=== PATIENT | female | born 1970 | race Caucasian/White ===

== ENCOUNTER 2017-01-02 22:02 | Inpatient (IN) | payer OTHER ==
[~2017-01-02] VITALS: Ht 162.6 cm; Wt 64.8 kg
[~2017-01-02 22:02] MED LIST: DEXA6TAB PO; HYDR-4003 PO; MELO7.5O PO; ROB500 PO; TIZA4CAP8 PO
[2017-01-02 22:15] VITALS: BP 106/72; PULSE 125; RESP 24; O2SAT 98
[2017-01-02 22:52] LABS: APPEARANCE,URINE CLOUDY (CLEAR,HAZY); COLOR,URINE YELLOW (YELLOW); OCCULT BLOOD,URINE MODERATE (NEGATIVE); UROBILINOGEN,URINE NORMAL (NORMAL)
[2017-01-02 23:04] LABS: BASOPHILS % (AUTO) 0.2 % (0-3); MONOCYTES % (AUTO) 9.7 % (4-12); Mean Corpuscular Hemoglobin 30.8 pg (27.0-35.0); Mean Corpuscular Volume 91.6 fL (81-100); NEUTROPHILS % (AUTO) 81.2 % (40-74); Platelet Count 243 bil/L (150-400)
[2017-01-02] MEDS ORDERED: 0.9% Sodium Chloride 1,000 ML IV ONE ×2 (23:04→23:50)
[2017-01-02] MEDS ORDERED: Ondansetron 2 mg/mL 2 mL Inj IVPUSH PRN (23:05)
[2017-01-02] MEDS ORDERED: cefTRIAXone Inj 2,000 MG in Dextrose 5% Minibag Plus 50 ML IV ONE (23:10)
--- NOTE | 2017-01-02 23:10 | ED.REPORT ---
HPI-Abd Pain F 40 and Over Date of Service Jan 02, 2017 ED Provider: Marcial Munoz MD A 46 year old female with a history of cervical cancer and hysterectomy presents to the ED complaining of left sided flank pain radiating to her abdomen. The pt has been experiencing intermittent left sided flank pain for the last month, but the pain worsened significantly in the last three days. The pt is also complaining of fever, chills, dysuria, headache, nausea, and vomiting this morning. The pt denies any history of kidney stones or UTI. Nursing Notes Stated Complaint: KIDNEY INFECTION Chief Complaint: Female Abdominal Pain Nursing Notes Reviewed: Yes Allergies: Coded Allergies: Penicillins (Verified Allergy, Severe, UNKNOWN, 05/24/16) amoxicillin (Verified Allergy, Severe, 05/24/16) Scheduled Dexamethasone (Dexamethasone) 6 Mg Tablet 9 MG PO DAILY Meloxicam (Meloxicam) 7.5 Mg/5 Ml Oral.susp 15 MG PO DAILY Methocarbamol (Methocarbamol) 500 Mg Tablet 500 MG PO TID Tizanidine (Tizanidine) 4 Mg Capsule 4 MG PO TID Scheduled PRN Hydrocodone-Acetaminophen 5-325 mg (Hydrocodone-Acetaminophen 5-325 mg) 1 Each Tablet 1 TABLET PO Q4H PRN PRN For Pain General Time Seen by MD: 22:45 Chief Complaint Flank pain left Hx Obtained From: Patient Arrived By: Walk-in Sudden in Onset?: No Onset Occurred: More than a week ago... Symptom Duration: Since onset Recent Healthcare: No recent doctor visit, No recent hospitalization Similar Sx Previous: No Past Medical History Past Medical History Notes: PCP: Nel Greene Past Medical History Cervical cancer Past Surgical History Hysterectomy Right shoulder surgery Smoking History Never Smoker, Unknown if Ever Smoker Social History Other Social History: Good social support, Lives alone, Local resident Ambulatory Status Independent Review of Systems Constitutional: Reports: Chills, Fever GI: Reports: Abdominal pain, Nausea, Vomiting Female: Reports: Dysuria, Flank pain (left ) Musculoskeletal: Denies: Back pain, Neck pain Complete sys rev & neg: except as marked. Skin: Denies Rash Neurologic: Reports: Headache Physical Exam Vital Signs Vital Signs (First) Date Time Temp Pulse Resp B/P Pulse Ox O2 Delivery O2 Flow Rate FiO2 01/02/17 22:15 38.7 125 24 106/72 98 Room Air Initial VS: Reviewed General/Constitutional: Awake, Alert Respiratory / Chest: Atraumatic, Breath sounds NL, Breath sounds = bilat, No respiratory distress Cardiovascular: Regular rhythm, Heart sounds NL, No murmurs Heart Rate / Rhythm: Positive: Tachycardia Abdomen: Atraumatic, Soft diffuse abdominal tenderness Back: Atraumatic, Full range of motion left CVAT Head / Eyes: Atraumatic, Normocephalic, PERRL, EOMI ENT: Atraumatic, Airway patent, Mucous membranes moist Skin: Atraumatic, Color NL, No rash, Dry febrile Neurologic: Oriented X3, Speech NL, No motor deficits, No sensory deficits Neck: Atraumatic, Supple, Full range of motion Upper Extremity / MS: Atraumatic, Full range of motion Lower Extremity / Pelvis / MS: Atraumatic, Full range of motion Psychiatric: Affect NL, Mood NL Interpretation & Diagnostics Lab Results Interpretation Result Diagram: 01/02/17 2255 01/02/17 2305 Test 01/02/17 22:32 01/02/17 22:40 01/02/17 22:55 01/02/17 23:05 Hold Urine Received (Received) Urine Color Yellow (YELLOW) Urine Appearance Cloudy (CLEAR,HAZY) Urine pH 6.0 (5.0-8.0) Urine Specific Jeff 1.015 (1.003-1.035) Urine Protein 100mg/dL (NEG,TRACE) Urine Glucose (UA) Negativemg/dL (NEGATIVE) Urine Ketones 15mg/dL (NEGATIVE) Urine Occult Blood Moderate (NEGATIVE) Urine Nitrite Negative (NEGATIVE) Urine Bilirubin Negative (NEGATIVE) Urine Urobilinogen Normalmg/dL (NORMAL) Urine Leukocyte Esterase Large (NEGATIVE) Urine RBC 0-2/hpf (0-2) Urine WBC >50/hpf (0-5) Urine Epithelial Cells Moderate/hpf (NONE-MOD) Urine Crystals None seen (NONE SEEN) Urine Bacteria Moderate/hpf (NONE-FEW) Urine Hyaline Casts None/lpf (NONE) Urine Granular Casts None seen (NONE SEEN) Urine Waxy Casts None seen (NONE SEEN) Urine Red Blood Cell Casts None seen (NONE SEEN) Urine White Blood Cell Casts None seen (NONE SEEN) Urine Mucus Present (None Seen) Urine Trichomonas None seen (NONE SEEN) Urine Yeast None (NONE SEEN) Urinalysis Comment None Urine Culture Reflexed Indicated White Blood Count 18.6th/mm3 (3.8-10.1) Red Blood Count 3.83mil/mm3 (3.90-5.20) Hemoglobin 11.8g/dL (12.0-15.6) Hematocrit 35.1% (35.0-46.0) Mean Corpuscular Volume 91.6fL (81-100) Mean Corpuscular Hemoglobin 30.8pg (27.0-35.0) Mean Corpuscular Hemoglobin Concent 33.6% (32.0-37.0) Red Cell Distribution Width 12.0% (12.3-15.4) Platelet Count 243bil/L (150-400) Neutrophils (%) (Auto) 81.2% (40-74) Lymphocytes (%) (Auto) 6.8% (14-46) Monocytes (%) (Auto) 9.7% (4-12) Eosinophils (%) (Auto) 1.0% (0-5) Basophils (%) (Auto) 0.2% (0-3) Hold Purple Top Tube Received (Received) Hold Blue Top Tube Received (Received) Sodium Level 131mEq/L (134-144) Potassium Level 3.3mEq/L (3.5-5.2) Chloride Level 93mEq/L (97-108) Carbon Dioxide Level 21mmol/L (18-29) Blood Urea Nitrogen 15mg/dL (6-24) Creatinine 0.94mg/dL (0.57-1.00) Estimat Glomerular Filtration Rate 92mL/min (>59) Glucose Level 110mg/dL (60-99) Calcium Level 8.7mg/dL (8.5-10.1) Magnesium Level 2.3mg/dL (1.6-2.6) Total Bilirubin 0.7mg/dL (0.0-1.2) Aspartate Amino Transf (AST/SGOT) 13U/L (0-50) Alanine Aminotransferase (ALT/SGPT) 13U/L (0-32) Alkaline Phosphatase 69U/L (25-150) Total Protein 7.0g/dL (6.4-8.4) Albumin 3.7g/dL (3.4-5.0) Lipase 13U/L (13-60) Hold Red Top Tube Received (Received) Test 2/21/17 23:18 Lactic Acid Level 1.1mmol/L (0.4-2.0) CT Abd / Pelvis Interpretation CONCLUSION: There are some perinephric stranding about the left kidney which may raise the possibility of pyelonephritis on this noncontrast study bit there is no hydronephrosis. Interpretation / Wet Read by: Interpret - Radiologist Re-Eval/Medical Decision Med Decision/Clinical Course 46-year-old female with left flank pain 4 weeks worsening last couple days. Also with fevers. Urine with white blood cells. White blood cell count 18,000. Lactate is normal. Tachycardic 120s improved to 100s with 2 L normal saline. Febrile. CT abdomen and pelvis no kidney stones but with left pyelonephritis. Patient was given Rocephin. Blood cultures sent. Admitted for acute pyelonephritis. Re-Evaluation/Progress : Time of Eval: 01:30 Re-Evaluation/Progress Note: Pt rechecked, who is requesting admission. CT results and diagnosis are discussed, as well as the plan for admission. The pt understands and agrees with the plan. All questions are addressed at this time. Consultation : Referral / Consult Name: Michele Mendoza MD Consulted With: Hospitalist Call Returned at: 01:39 Wire Puller: Agrees with eval, Agrees with plan, Accepts admit Note: Spoke with Dr. Mendoza, hospitalist, regarding pt's case. Dr. Mendoza agrees with the evaluation and agrees to admit the pt. Counseled Regarding: Diagnosis, Lab results, Need for admission Discharge & Departure Primary Impression: Pyelonephritis Disposition: ADMITTED TO HOSPITAL Discharge Condition All VS Reviewed: Yes Condition: Stable Referrals: Nel Greene MD (PCP) Jenniffer Attestation Portions of this note were transcribed by Atif Armenta. I, Dr. Munoz personally performed the history, physical exam and medical decision-making; I reviewed and confirmed the accuracy of the information in the transcribed note. Signed by: Jenniffer Simon, 01/03/2017 and 02:40. copies to: Jax Odom MD, Ben M MD Jan 02, 2017 23:10 ATIF ARMENTA Jan 02, 2017 23:30
[2017-01-02 23:32] VITALS: BP 109/66; PULSE 97; RESP 21; O2SAT 100
[2017-01-02 23:46] LABS: Magnesium 2.3 mg/dL (1.6-2.6)
[2017-01-03] VITALS (11 sets, daily range): BP systolic 93–146; BP diastolic 57–95; PULSE 71–115; RESP 14–25; O2SAT 97–100
[2017-01-03] MEDS ORDERED: Ondansetron 2 mg/mL 2 mL Inj IVPUSH PRN (01:50)
[2017-01-03] MEDS ORDERED: Alum-Mag Hydrox-Simeth 30 mL Suspension PO PRN (01:50)
[2017-01-03] MEDS: HYDROmorphone 1 mg/mL Inj IVPUSH PRN ×6 (02:33→21:30)
[2017-01-03] MEDS ORDERED: 0.9% Sodium Chloride 1,000 ML IV SCH (02:51)
[2017-01-03] MEDS ORDERED: Acetaminophen IV 1,000 MG in IV Premix 1 EACH IV PRN (02:55)
[2017-01-03] MEDS: 0.9% Sodium Chloride 1,000 ML IV SCH ×3 (03:11→17:42)
[2017-01-03] MEDS ORDERED: TOPI-59 PO (03:20)
[2017-01-03] MEDS ORDERED: TIZA4CAP8 PO (03:20)
[2017-01-03] MEDS ORDERED: BUPR100T7 PO (03:20)
--- NOTE | 2017-01-03 03:36 | PCM.HPMED ---
Subjective Date of Service Jan 03, 2017 Primary Provider: Admitting Physician: Michele Mendoza MD Primary Care Physician: Nel Greene MD Attending Physician: Michele Mendoza MD Chief Complaint: Flank pain and dysuria History of Present Illness: 46-year-old female with history of cervical cancer status post total hysterectomy and migraines who presents with complaint of approximately one month of dysuria, and 4 days of worsening flank/left back pain associated with dysuria, headaches, fevers. Patient reports that a proximally 4 weeks ago she saw her primary care doctor with complaint of dysuria. No antibiotics were given at that time (and patient denies receiving antibiotics for at least the last 3-4 months). Indeed, it appears no laboratory studies are micro-studies were done at that time either. Patient reports that on Sunday (12/30/16) she experienced acute worsening of left flank and back pain associated with the ongoing dysuria. Unfortunately, at that time she also started to experience fevers/chills, worsening headache, some blurriness of her vision associated with dizziness and lightheadedness upon standing. Her symptoms are so distressing last night that her daughter called the patient's girlfriend (who is reportedly a doctor here), and subsequently she was brought here to the ER. She reports significant left flank and back pain that is waxing and waning (8/ 10 max) which makes it uncomfortable for her to lay flat on her back. She also reports nausea, and associated vomiting with the inability to keep anything down since Sunday per her report. She denies any blood or pink tinge to her urine at this time, but does report that couple weeks ago she did note some tinge. She reports she feels cold at this time associated with her measured fevers as detailed below. She denies sick contacts. She denies any headache at this time noting that it resolved with administration of pain medication. Review of outpatient and inpatient micro-history does not demonstrate any significant findings. In the ER she received 2 L of NS, several doses of ondansetron for nausea, and Dilaudid for pain. She was given a dose of ceftriaxone empirically. CT of the abdomen and pelvis is been performed (though no official radiological report is available at this time), but on my personal review and I do not appreciate any hydronephrosis, any signs of abscess, any signs of stone (please note that the calcified-appearing abnormalities in the right pelvis are chronic, they were present on pelvic x-ray in 2015). Patient is admitted under inpatient status with expected length of stay greater than 2 midnights due to severity of presenting symptoms, risk of adverse event, and complexity of treatment plan. Comprehensive review of systems conducted and was negative except for the pertinent positives listed in history of present illness above. Allergies Coded Allergies: Penicillins (Verified Allergy, Severe, UNKNOWN, 01/03/17) amoxicillin (Verified Allergy, Severe, 01/03/17) Home Medications Patient reports taking: Vicodin 1 tablet as needed for chronic pain (she reports that she only uses this very occasionally) Topiramate for migraine control Triptan for migraine PMH History of cervical cancer status post total hysterectomy Migraines History of back injury (reported work-related injury) on opiate medication ( reported occasional use) Reports left shoulder surgery 2 in the past Family History Reports that she never knew her father. Reports that her mother had thyroid disease Social History Hx Alcohol Use: Yes ("once a week" she reports that her last use was Sunday evening (3 glasses of wine)) Hx Substance Use: Yes (reports occasional smoking of marijuana oil (last use Sunday)) Hx Tobacco Use: No Smoking Status: Never Smoker Living Arrangement: Alone Exam Vital Signs Vital Sign - Last Date Time Temp Pulse Resp B/P Pulse Ox O2 Delivery O2 Flow Rate FiO2 01/03/17 02:42 39.5 115 22 93/60 98 Room Air Intake and Output 01/02/17 01/02/17 01/03/17 Cumulative From/Thru 15:00 23:00 07:00 01/02/17 22:15 - 01/03/17 02:42 Intake Total 2000 ml 2000 ml Balance 2000 ml 2000 ml Intake IV Total 2000 ml 2000 ml Exam General: Alert, Oriented X3, Cooperative, moderate Distress with repositioning to her right side given her left-sided flank and back pain Head: Normocephalic, atraumatic. External ears normal. Eyes: PERRL, EOMI. Anicteric sclerae. Conjunctivae are not injected Mouth: Mouth Normal, Mucous Membranes Moist/Duvall Neck: Neck supple with full range of motion. No Thyromegaly. Chest & Lungs: Clear to auscultation bilaterally with no crackles, wheezes, or rhonchi. Cardiovascular: Regular Rate/Rhythm, Normal S1, Normal S2, No Murmurs/Rubs/ Gallops radial pulses are 2+ bilaterally Abdomen: Non-tender, Non-distended, No masses, Normoactive bowel tones, Soft Musculoskeletal: Normal Range of Motion. Tender to light palpation in left CVA Extremities: No cyanosis/clubbing/edema bilat Skin: No rash appreciated Neurological: Grossly Neurologically Intact, Cranial Nerves 2-12 Intact, Normal Speech Psych: Normal mood and affect. Thought process and content intact. Lab and Diagnostics Labs A 1.2% neutrophils Lactic acid 1.1 Liver function normal Progressive down impending Urine protein 100, urine ketones 15, moderate occult blood, large leukocyte esterase, greater than 50 WBC, moderate epithelial cells, moderate bacteria Result Diagram: 01/02/17 0170 01/02/17 Microbiology Blood and urine cultures pending X-Rays, CTs and MRIs Awaiting official reports on CT KUB. Please see personal read in history of present illness 12-lead ECG Upper form this admission Assessment & Plan 46-year-old female with history of cervical cancer status post total hysterectomy and migraines who presents with complaint of approximately one month of dysuria, and 4 days of worsening flank/left back pain associated with dysuria, headaches, fevers. # Sepsis. Present on admission -Fever, tachycardia, tachypnea, source of infection is likely urinary tract -2 L of normal saline in the ER, and we will continue with 125 of normal saline per hour -Empiric antibiotics with ceftriaxone -Monitor vital signs closely -Tylenol for high fevers -Ondansetron for nausea -Dilaudid for pain -We will watch her blood pressure and other vital signs closely, and also assess for ongoing clinical signs of hypotension such as dizziness or lightheadedness as reported per patient -Routinely assess for clinical improvement. * If not improving, or getting worse, we may need to reconsider our antibiotic choice to account for the rising incidence of community-acquired ESBL microbes ( this would entail switching to ertapenem) -Monitor for return of significant headache, and/or any progressing neurologic symptoms that would suggest an alternative diagnosis (i.e. meningitis) -We will monitor labs closely -Pro calcitonin is pending # Pyelonephritis, left. Present on admission -Await official read on the CT KUB -Management as above # Migraines, history of. -When she is able to tolerate by mouth administration, consider continuing her topiramate -Should her migraine return, consider migraine cocktail of Toradol, diphenhydramine, ondansetron Chronic conditions: Chronic back pain on occasional opiates-pain management as noted above with expectation that we will switch to by mouth administration when she can tolerate Patient is admitted under inpatient status with expected length of stay greater than 2 midnights due to severity of presenting symptoms, risk of adverse event, and complexity of treatment plan. Pain Evaluation: Adequate Pain Control GI Prophylaxis: Not indicated VTE Prophylaxis: Sub-Q Heparin (Unfractionated) Resuscitation Status: CPR: Attempt Resuscitation Time spent The patient was seen and examined together with Dr. Rubin on 01/03 and I agree with the history, exam and plan as outlined in the note above. copies to: Raul Todd Collin T DO Jan 03, 2017 03:10 Michele Mendoza MD Jan 03, 2017 07:05
[2017-01-03] MEDS: Ondansetron 2 mg/mL 2 mL Inj IVPUSH PRN ×3 (03:50→21:29)
[2017-01-03] MEDS ORDERED: Pantoprazole 4 mg/mL 10 mL Inj IVPUSH ONE (04:20)
[2017-01-03] MEDS ORDERED: ProchlorPERazine 5 mg/mL 2 mL Inj IM ONE (04:25)
--- NOTE | 2017-01-03 06:36 | NUR ---
Admit Pt arrived to [facility] at 0214, pt A&Ox3, pt able to easily ambulate to bed w/ minimal assistance. Pt arrived in 8/10 pain, very shaky and uncomfortable. Pt wrapped in blankets and oriented to unit, VS were not stable on arrival, very high fever as well as tachycardic. Docters were wonderful and able to get pain medications and nausea medications in order, pt able to relax and calm down.
--- NOTE | 2017-01-03 06:40 | NUR ---
Pain/Nausea Pt reported returning pain only 3 hours after dilaudid dose, got the ok from dr smith to give another dose early. Pt reports successful alleviation of nausea after zofran and ppi dose. Zofran is to be used as minimally as possible r/t prolonged QTc, to use compazine ideally.
[2017-01-03] MEDS: ProchlorPERazine 5 mg/mL 2 mL Inj IVPUSH PRN ×3 (06:47→23:22)
[2017-01-03 06:50] LABS: BASOPHILS % (AUTO) 0.1 % (0-3); EOSINOPHILS % (AUTO) 0.1 % (0-5); MONOCYTES % (AUTO) 10.9 % (4-12); Mean Corpuscular Hemoglobin 30.9 pg (27.0-35.0); Mean Corpuscular Volume 92.8 fL (81-100); NEUTROPHILS % (AUTO) 81.1 % (40-74); Platelet Count 242 bil/L (150-400)
[2017-01-03 07:19] LABS: Magnesium 2.3 mg/dL (1.6-2.6)
[2017-01-03] MEDS ORDERED: KCl 40 mEq/D5W 500 mL 40 MEQ in IV Premix 500 EACH IV ONE (07:40)
[2017-01-03] MEDS ORDERED: Potassium Chloride 20 mEq SR Tablet PO ONE (07:40)
[2017-01-03] MEDS ORDERED: D5W 40 MEQ IV ONE (07:43)
[2017-01-03] MEDS ORDERED: KCL IV ONE (07:43)
[2017-01-03] MEDS ORDERED: DEXTROSE 5% IV ONE (07:43)
[2017-01-03] MEDS: cefTRIAXone Inj 2,000 MG in Dextrose 5% Minibag Plus 50 ML IV SCH (08:52)
[2017-01-03] MEDS: Heparin 5,000 Unit/mL Inj SUBQ SCH ×3 (08:53→23:26)
[2017-01-03] MEDS ORDERED: SUMA100T2 PO (09:16)
[2017-01-03] MEDS ORDERED: BUPR150T12 PO (09:18)
[2017-01-03] MEDS ORDERED: TOPI50TA88 PO (09:23)
--- NOTE | 2017-01-03 11:03 | DRSVH ---
PROCEDURE: CT KUB ([id number]) INDICATIONS: L flank pain TECHNIQUE: Noncontrast 5 mm thick sections acquired from the diaphragms to the symphysis. 5 mm thick coronal an d sagittal reformats were then performed. For radiation dose reduction, the following was used: aut omated exposure control, adjustment of mA and/or kV according to patient size. COMPARISON: None. FINDINGS: Image quality: Excellent. Lung bases: Lung bases are clear. Heart size is normal. Urinary system: Both kidneys are normal in size. No kidney stones. No hydronephrosis. There is tra ce left perinephric stranding. No obstruction or visualized stone. Both ureters appear non-dilated t hroughout their expected courses. Bladder wall thickness is normal; no calcified bladder stones. Other solid organs: Liver is mildly enlarged the steatosis. The spleen is normal in size. Gallbladd er is unremarkable. Pancreas is normal in contours. No adrenal nodules. Peritoneum and bowel: Unenhanced bowel loops demonstrate normal wall thickness and caliber. No free fluid or air. Nodes and vessels: No retroperitoneal or mesenteric adenopathy by size criteria. Aorta and inferior vena cava are normal in caliber. Abdominal wall: No ventral hernias. Pelvis: No free pelvic fluid. No inguinal hernias or adenopathy. Bones: No suspicious bony lesions. No vertebral body compression fractures. IMPRESSION: 1. Trace left perinephric stranding without visualized stone or obstruction. No bladder calculi. Find ings could be disability representative of recently passed stone or potentially infection/inflammation such as p yelonephritis. If the latter is of concern, contrast study as well as correlation with laboratory jeff ues is recommended. Dictated by: Alyssia Hart M.D. on 01/03/2017 at 10:59 Approved by: Alyssia Hart M.D. on 01/03/2017 at 11:01
--- NOTE | 2017-01-03 13:48 | NUR ---
Social Work Screen Note: EMR reviewed. Patient is a 46 year old female admitted on 01/03/17 for pyelonephritis. Patient payer as [place]. Patient PCP as MD Greene. Patient resides in [facility] and is independent with needs. Patient emergency contact listed as significant other Augustine, . No anticipated discharge needs at this time. SW will continue to follow pending clinical course PLAN: Home via POV, pending clinical course. SW will continue to follow Flaco BELLAMY
--- NOTE | 2017-01-03 13:52 | NUR ---
Pain/Nausea Pt complains of L sided flank pain up to "05/21". She is getting IV Dilaudid with good results, pt reports it alleviates pain for up to 3 hours before the pain comes back. She reports intermittent nausea that is well controlled with IV compazine at this time. No vomiting so far this shift. Pt reports that her appetite is "coming back" and is requesting food at this time. Continues to be NPO per orders.
--- NOTE | 2017-01-03 23:12 | NUR ---
Nausea Pt complalins of intermittent nausea Requested compazine from pharmacy Awaiting refill Pt updated on this request. Verbalizes understanding.
[2017-01-04] VITALS (9 sets, daily range): BP systolic 98–146; BP diastolic 61–76; PULSE 65–95; RESP 16–18; O2SAT 95–99
[2017-01-04] MEDS: 0.9% Sodium Chloride 1,000 ML IV SCH ×3 (01:06→22:04)
[2017-01-04] MEDS: HYDROmorphone 1 mg/mL Inj IVPUSH PRN ×3 (02:47→22:35)
[2017-01-04] MEDS: Ondansetron 2 mg/mL 2 mL Inj IVPUSH PRN (02:47)
--- NOTE | 2017-01-04 03:24 | NUR ---
Pain Pt c/o left flank pain at a 7 Given IV dialudid and IV zofran. Currently resting quietly. Eyes closed. Care ongoing
--- NOTE | 2017-01-04 07:48 | NUR ---
Tele/Shower Contacted Dr. Resendiz with the following cook page: Patient is currently on telemetry and requesting to take a shower this morning. Please advise. Thank you. Lu BOTELLO
[2017-01-04 08:07] LABS: BASOPHILS % (AUTO) 0.2 % (0-3); EOSINOPHILS % (AUTO) 0.4 % (0-5); MONOCYTES % (AUTO) 12.4 % (4-12); Mean Corpuscular Hemoglobin 30.4 pg (27.0-35.0); Mean Corpuscular Volume 93.7 fL (81-100); NEUTROPHILS % (AUTO) 73.9 % (40-74); Platelet Count 244 bil/L (150-400)
[2017-01-04 08:17] LABS: INR 0.94 ratio
[2017-01-04] MEDS: cefTRIAXone Inj 2,000 MG in Dextrose 5% Minibag Plus 50 ML IV SCH (09:01)
[2017-01-04] MEDS: ProchlorPERazine 5 mg/mL 2 mL Inj IVPUSH PRN (09:02)
--- NOTE | 2017-01-04 10:45 | NUR ---
Morning Rounds Staffed patient's case with Dr. Resendiz and case management. Dr. Resendiz stated patient can be off tele while she takes a shower this morning. No plan for discharge at this time.
--- NOTE | 2017-01-04 11:37 | PCM.PNMED ---
Subjective Date of Service Jan 04, 2017 Subjective She is overall feeling better Denied nausea, vomiting Still has some left flank pain 3/10 tolerated breakfast Exam Vital Signs Vital Sign - Last Date Time Temp Pulse Resp B/P Pulse Ox O2 Delivery O2 Flow Rate FiO2 01/04/17 08:00 91 01/04/17 07:54 36.7 16 108/70 98 Room Air Intake and Output 01/03/17 01/03/17 01/04/17 Cumulative From/Thru 15:00 23:00 07:00 01/02/17 22:15 - 01/04/17 05:00 Intake Total 2641 ml 1640 ml 6481 ml Output Total 750 ml 1000 ml 2900 ml Balance 1891 ml 640 ml 3581 ml Intake Oral 960 ml 1160 ml IV Total 1681 ml 1640 ml 5321 ml Output Urine Total 750 ml 1000 ml 2900 ml Exam NAD, comfortably laying down on the bed no JVD, MMM, no LAD RRR, nl s1, s2 no mrg CTAB, no w,c S,ND,LLQ tenderness,normoactive BS+ warm, no edema, pulses 2/2 IVs and Medications Medications Reviewed: Medications were reviewed in detail Lab and Diagnostics Result Diagram: 01/04/17 0735 01/04/17 0735 Microbiology Blood and urine cultures pending X-Rays, CTs and MRIs Awaiting official reports on CT KUB. Please see personal read in history of present illness 12-lead ECG Upper form this admission Assessment & Plan 46-year-old female with history of cervical cancer status post total hysterectomy and migraines who presents with complaint of approximately one month of dysuria, and 4 days of worsening flank/left back pain associated with dysuria, headaches, fevers. # Sepsis secondary to pyelonephritis. Present on admission, -Fever, tachycardia , tachypnea, -Today pt is clinically improving, fever curve/wbc trended down, -s/p 2 L of normal saline in the ER, and we will continue with 125 of normal saline per hour -Empiric antibiotics with [id number] [id number] -Tylenol for high fevers -Ondansetron for nausea -Dilaudid for pain -awaiting final UCX # Pyelonephritis, left. Present on admission, based on CT KUB, no abscess. -Management as above # Migraines, history of -When she is able to tolerate by mouth administration, consider continuing her topiramate -Should her migraine return, consider migraine cocktail of Toradol, diphenhydramine, ondansetron Chronic conditions: Chronic back pain on occasional opiates-pain management as noted above with expectation that we will switch to by mouth administration when she can tolerate dispo: likely 1-2more day home with oral agent diet: advance as tolerate Full Code GI Prophylaxis: Not indicated VTE Prophylaxis: Sub-Q Heparin (Unfractionated) Resuscitation Status: CPR: Attempt Resuscitation Limited Interventions: Medications and IV Fluid Time spent 35min Quirino Resendiz MD Jan 04, 2017 11:25
--- NOTE | 2017-01-04 16:42 | NUR ---
Bowel Management Contacted Dr. Resendiz with the following cook page: Patient reported she has not had a BM since prior to arrival and normally has a BM daily. Patient may need bowel management Rx, please advise. Thank you. Lu BOTELLO
[2017-01-04] MEDS ORDERED: Polyethylene Glycol (PEG) 17 Gm Powder PO ONE (16:45)
[2017-01-04] MEDS ORDERED: Polyethylene Glycol (PEG) 17 Gm Powder PO PRN (16:45)
--- NOTE | 2017-01-04 22:17 | NUR ---
patient concern patient concerned that she discharges tomorrow for her daughters 11[age] birthday. denies pain, tolerating fluids. afebrile. ambulating independently. states "i feel so much better." listened to concerns, given support.
[2017-01-05 02:02] VITALS: BP 106/70; PULSE 90; RESP 16; O2SAT 99
[2017-01-05] MEDS: 0.9% Sodium Chloride 1,000 ML IV SCH ×2 (04:49→10:51)
[2017-01-05 04:52] VITALS: PULSE 87
[2017-01-05] MEDS: HYDROmorphone 1 mg/mL Inj IVPUSH PRN (04:53)
--- NOTE | 2017-01-05 06:33 | NUR ---
pain patient complained of headache early this am. medicated with tylenol and hydromorphone as documented effective. patient resting at this time also given ice pack.
[2017-01-05 06:37] VITALS: BP 112/72; PULSE 62; RESP 16; O2SAT 100
[2017-01-05 06:57] LABS: BASOPHILS % (AUTO) 0.2 % (0-3); MONOCYTES % (AUTO) 7.2 % (4-12); Mean Corpuscular Hemoglobin 30.9 pg (27.0-35.0); Mean Corpuscular Volume 93.9 fL (81-100); NEUTROPHILS % (AUTO) 75.8 % (40-74); Platelet Count 275 bil/L (150-400)
[2017-01-05 07:20] LABS: Magnesium 2.1 mg/dL (1.6-2.6); Phosphorus 3.6 mg/dL (2.5-4.9)
[2017-01-05 07:47] VITALS: PULSE 71
[2017-01-05] MEDS ORDERED: CIPR-231 PO (08:15)
--- NOTE | 2017-01-05 08:18 | PCM.DIMED ---
Discharge Instructions Date of Service Jan 05, 2017 Dates of Hospitalization Jan 03, 2017 at 01:44 Discharge Diagnosis Discharge Diagnosis Acute pyelonephritis Medication Instructions Take Ciprofloxacin 500mg every 12hrs for 8more days Diet No restrictions Activity No restrictions Call your provider Fever or Chills Patient Instructions You were hospitalized with kidney infection, treated with antibiotics. Please return to hospital if you notice increasing pain, nausea, vomiting, fever. Please keep hydrating well with water. Please follow medicine instruction as above Follow-up plan Please follow up with your doctor Nel Odom in 2weeks Follow-up with PCP in: 2 weeks Quirino Resendiz MD Jan 05, 2017 08:18
[2017-01-05] MEDS: cefTRIAXone Inj 2,000 MG in Dextrose 5% Minibag Plus 50 ML IV SCH (08:29)
[2017-01-05] MEDS ORDERED: Influenza (Adult) Vaccine 0.5 mL Syringe IM ONE (08:30)
--- NOTE | 2017-01-05 11:25 | NUR ---
Discharge Pt discharged from unit. Pt says her friend will pick her up and wants to wait in the lobby. Provided with information on diagnosis, follow up, medication, and signs to watch for. Pt's belongings taken with her.
--- NOTE | 2017-01-05 12:10 | NUR ---
Social Work note - Discharge PSYCHOLOGICAL AIDE completed EMR review: Pt was able to d/c home with family providing transportation. Pt denies any d/c needs will follow up with PCP. completed d/c today. Plan: Home with family in POV. RAJ Harrell
--- NOTE | 2017-01-05 16:41 | PCM.DC.MED ---
Discharge Summary Date of Service Jan 05, 2017 Dates of Hospitalization Date of Hospital Admission Jan 03, 2017 at 01:44 Date of Discharge: Jan 05, 2017 Providers: Admitting Physician: Michele Mendoza MD Primary Care Physician: Nel Greene MD Attending Physician: Michele Mendoza MD Diagnosis at Time of Discharge Diagnosis at Time of Discharge Acute pyelonephritis Chronic conditions: # Migraines, #Chronic back pain on occasional opiates #history of cervical cancer status post total hysterectomy Procedures XRay, CTs & MRIs PROCEDURE: CT KUB ([id number]) INDICATIONS: L flank pain TECHNIQUE: Noncontrast 5 mm thick sections acquired from the diaphragms to the symphysis. 5 mm thick coronal and sagittal reformats were then performed. For radiation dose reduction, the following was used: automated exposure control, adjustment of mA and/or kV according to patient size. COMPARISON: None. FINDINGS: Image quality: Excellent. Lung bases: Lung bases are clear. Heart size is normal. Urinary system: Both kidneys are normal in size. No kidney stones. No hydronephrosis. There is trace left perinephric stranding. No obstruction or visualized stone. Both ureters appear non-dilated throughout their expected courses. Bladder wall thickness is normal; no calcified bladder stones. Other solid organs: Liver is mildly enlarged the steatosis. The spleen is normal in size. Gallbladder is unremarkable. Pancreas is normal in contours. No adrenal nodules. Peritoneum and bowel: Unenhanced bowel loops demonstrate normal wall thickness and caliber. No free fluid or air. Nodes and vessels: No retroperitoneal or mesenteric adenopathy by size criteria. Aorta and inferior vena cava are normal in caliber. Abdominal wall: No ventral hernias. Pelvis: No free pelvic fluid. No inguinal hernias or adenopathy. Bones: No suspicious bony lesions. No vertebral body compression fractures. IMPRESSION: 1. Trace left perinephric stranding without visualized stone or obstruction. No bladder calculi. Findings could be outbound sales representative of recently passed stone or potentially infection/inflammation such as pyelonephritis. If the latter is of concern, contrast study as well as correlation with laboratory values is recommended. Dictated by: Alyssia Hart M.D. on 01/03/2017 at 10:59 Approved by: Alyssia Hart M.D. on 01/03/2017 at 11:01 Brief History HPI obtained by 01/03 46-year-old female with history of cervical cancer status post total hysterectomy and migraines who presents with complaint of approximately one month of dysuria, and 4 days of worsening flank/left back pain associated with dysuria, headaches, fevers. Patient reports that a proximally 4 weeks ago she saw her primary care doctor with complaint of dysuria. No antibiotics were given at that time (and patient denies receiving antibiotics for at least the last 3-4 months). Indeed, it appears no laboratory studies are micro-studies were done at that time either. Patient reports that on Sunday (12/30/16) she experienced acute worsening of left flank and back pain associated with the ongoing dysuria. Unfortunately, at that time she also started to experience fevers/chills, worsening headache, some blurriness of her vision associated with dizziness and lightheadedness upon standing. Her symptoms are so distressing last night that her daughter called the patient's girlfriend (who is reportedly a doctor here), and subsequently she was brought here to the ER. She reports significant left flank and back pain that is waxing and waning (8/ 10 max) which makes it uncomfortable for her to lay flat on her back. She also reports nausea, and associated vomiting with the inability to keep anything down since Sunday per her report. She denies any blood or pink tinge to her urine at this time, but does report that couple weeks ago she did note some tinge. She reports she feels cold at this time associated with her measured fevers as detailed below. She denies sick contacts. She denies any headache at this time noting that it resolved with administration of pain medication. Review of outpatient and inpatient micro-history does not demonstrate any significant findings. In the ER she received 2 L of NS, several doses of ondansetron for nausea, and Dilaudid for pain. She was given a dose of ceftriaxone empirically. CT of the abdomen and pelvis is been performed (though no official radiological report is available at this time), but on my personal review and I do not appreciate any hydronephrosis, any signs of abscess, any signs of stone (please note that the calcified-appearing abnormalities in the right pelvis are chronic, they were present on pelvic x-ray in 2015). Patient is admitted under inpatient status with expected length of stay greater than 2 midnights due to severity of presenting symptoms, risk of adverse event, and complexity of treatment plan. Comprehensive review of systems conducted and was negative except for the pertinent positives listed in history of present illness above. Hospital Course 46-year-old female with history of cervical cancer status post total hysterectomy and migraines who presents with complaint of approximately one month of dysuria, and 4 days of worsening flank/left back pain associated with dysuria, headaches, fevers. # Sepsis secondary to pyelonephritis.UA was positive with nitrite/leukEST/ bacteria. CT abd/pelvis showed Trace left perinephric stranding without visualized stone or obstruction, abscess. SIRS was positive with Fever, tachycardia, tachypnea. pt was given IVF, started with [id number] qd, had fevers initially but remained afebrile, HD stable. Finial UCX was mixed marsha and repeat UCX was negative up to date. pt was clinically improved with tx, tolerating diet well, no more pain, ambulating well, deemed safe for d/c. Cipro 500 bid will be continued for 10days in total, plan to follow up finial repeat UCX in case of MDR grows. Pt will be followed by PCP in 2weeks. Chronic conditions: # Migraines, #Chronic back pain on occasional opiates #history of cervical cancer status post total hysterectomy Exam Vital Signs (Last) Date Time Temp Pulse Resp B/P Pulse Ox O2 Delivery O2 Flow Rate FiO2 01/05/17 07:47 71 01/05/17 06:37 36.7 16 112/72 100 Room Air Exam NAD, comfortably laying down on the bed no JVD, MMM, no LAD RRR, nl s1, s2 no mrg CTAB, no w,c S,ND,NT,normoactive BS+ warm, no edema, pulses 2/2 Test 01/02/17 22:32 01/02/17 22:40 01/02/17 23:05 01/02/17 23:18 Hold Urine Received (Received) Urine Color Yellow (YELLOW) Urine Appearance Cloudy (CLEAR,HAZY) Urine pH 6.0 (5.0-8.0) Urine Specific [place] 1.015 (1.003-1.035) Urine Protein 100mg/dL (NEG,TRACE) Urine Glucose (UA) Negativemg/dL (NEGATIVE) Urine Ketones 15mg/dL (NEGATIVE) Urine Occult Blood Moderate (NEGATIVE) Urine Nitrite Negative (NEGATIVE) Urine Bilirubin Negative (NEGATIVE) Urine Urobilinogen Normalmg/dL (NORMAL) Urine Leukocyte Esterase Large (NEGATIVE) Urine RBC 0-2/hpf (0-2) Urine WBC >50/hpf (0-5) Urine Epithelial Cells Moderate/hpf (NONE-MOD) Urine Crystals None seen (NONE SEEN) Urine Bacteria Moderate/hpf (NONE-FEW) Urine Hyaline Casts None/lpf (NONE) Urine Granular Casts None seen (NONE SEEN) Urine Waxy Casts None seen (NONE SEEN) Urine Red Blood Cell Casts None seen (NONE SEEN) Urine White Blood Cell Casts None seen (NONE SEEN) Urine Mucus Present (None Seen) Urine Trichomonas None seen (NONE SEEN) Urine Yeast None (NONE SEEN) Urinalysis Comment None Urine Culture Reflexed Indicated Hold Purple Top Tube Received (Received) Hold Blue Top Tube Received (Received) Lipase 13U/L (13-60) Procalcitonin 0.74ng/mL (0.00-0.08) Hold Red Top Tube Received (Received) Lactic Acid Level 1.1mmol/L (0.4-2.0) Test 01/04/17 07:35 01/05/17 06:45 Prothrombin Time 10.0sec (8.1-12.5) Prothromb Time International Ratio 0.94ratio Activated Partial Thromboplast Time 31.3sec (22.8-33.0) White Blood Count 8.9th/mm3 (3.8-10.1) Red Blood Count 3.30mil/mm3 (3.90-5.20) Hemoglobin 10.2g/dL (12.0-15.6) Hematocrit 31.0% (35.0-46.0) Mean Corpuscular Volume 93.9fL (81-100) Mean Corpuscular Hemoglobin 30.9pg (27.0-35.0) Mean Corpuscular Hemoglobin Concent 32.9% (32.0-37.0) Red Cell Distribution Width 12.4% (12.3-15.4) Platelet Count 275bil/L (150-400) Neutrophils (%) (Auto) 75.8% (40-74) Lymphocytes (%) (Auto) 15.3% (14-46) Monocytes (%) (Auto) 7.2% (4-12) Eosinophils (%) (Auto) 1.0% (0-5) Basophils (%) (Auto) 0.2% (0-3) Sodium Level 142mEq/L (134-144) Potassium Level 4.0mEq/L (3.5-5.2) Chloride Level 104mEq/L (97-108) Carbon Dioxide Level 25mmol/L (18-29) Blood Urea Nitrogen 6mg/dL (6-24) Creatinine 0.54mg/dL (0.57-1.00) Estimat Glomerular Filtration Rate 175mL/min (>59) Glucose Level 104mg/dL (60-99) Calcium Level 8.2mg/dL (8.5-10.1) Phosphorus Level 3.6mg/dL (2.5-4.9) Magnesium Level 2.1mg/dL (1.6-2.6) Total Bilirubin 0.2mg/dL (0.0-1.2) Aspartate Amino Transf (AST/SGOT) 21U/L (0-50) Alanine Aminotransferase (ALT/SGPT) 29U/L (0-32) Alkaline Phosphatase 80U/L (25-150) Total Protein 6.0g/dL (6.4-8.4) Albumin 3.4g/dL (3.4-5.0) Microbiology Results Blood and urine cultures pending Discharge Medications Discharge Medications Bupropion ER (Bupropion ER) 150 Mg Tablet.er 150 MG PO DAILY (Reported) Ciprofloxacin (Cipro) 500 Mg Tablet 500 MG PO BID Prescribed by: QUIRINO RIDDLE MD Topiramate (Topiramate) 50 Mg Tablet 100 MG PO DAILY (Reported) As needed Hydrocodone-Acetaminophen 5-325 mg (Hydrocodone-Acetaminophen 5-325 mg) 1 Each Tablet 1 TABLET PO Q4H PRN PRN For Pain Prescribed by: TOÑO HERNANDEZ MD Sumatriptan Succinate (Sumatriptan Succinate) 100 Mg Tablet 100 MG PO DAILY PRN PRN Headache (Reported) Tizanidine (Tizanidine) 4 Mg Capsule 4 MG PO TID PRN PRN For Pain (Reported) Additional med instructions Take Ciprofloxacin 500mg every 12hrs for 8more days Followup Plan Disposition: home Follow-up plan Please follow up with your doctor Nel Odom in 2weeks Discharge Diet: No restrictions Discharge Activity: No restrictions Patient Instructions You were hospitalized with kidney infection, treated with antibiotics. Please return to hospital if you notice increasing pain, nausea, vomiting, fever. Please keep hydrating well with water. Please follow medicine instruction as above Follow-up with PCP in: 2 weeks Time spent 65min Quirino Riddle MD Jan 05, 2017 14:27
== END 2017-01-05 11:25 | disposition home or self-care (01) | DRG 872 ==
LOC: SED 22:02 → MOC 01-03 01:44
PROVIDERS: ADMIT Hospitalist; ATTEND Hospitalist
DX: A41.9 Sepsis, unspecified organism (principal); N12 Tubulo-interstitial nephritis, not specified as acute or chronic; Z85.41 Personal history of malignant neoplasm of cervix uteri